=== PATIENT | female | born 1960 ===

== ENCOUNTER 2017-11-16 14:31 | Emergency (ER) | payer OTHER ==
[~2017-11-16] VITALS: Ht 154.9 cm; Wt 74.8 kg
[2017-11-16] MEDS ORDERED: HYDROCHLOROTH12.5 M1 PO (14:51)
[2017-11-16] MEDS ORDERED: INDERAL LA80 MG PO (14:51)
[2017-11-16] MEDS ORDERED: BUTALB-ACETAMI1 EACH PO (23:26)
[2017-11-16] MEDS ORDERED: PROTONIX40 MG PO (23:26)
[2017-11-16] MEDS ORDERED: METOCLOPRAMIDE10 MG PO (23:26)
[2017-11-16] MEDS ORDERED: ZANTAC300 MG PO (23:26)
[2017-11-16] MEDS ORDERED: APETIGEN-PLUS1 EACH PO (23:33)
[2017-11-16] MEDS ORDERED: DIPHENHYDRAMINE50 M1 PO (23:33)
== END 2017-11-16 23:47 | disposition home or self-care (01) ==
LOC: ER 14:31
DX: R51 Headache (principal); K29.70 Gastritis, unspecified, without bleeding

== ENCOUNTER 2018-12-31 09:19 | Outpatient (CLI) | payer OTHER ==
[~2018-12-31 09:19] MED LIST: APETIGEN-PLUS1 EACH PO; BUTALB-ACETAMI1 EACH PO; DIPHENHYDRAMINE50 M1 PO; HYDROCHLOROTH12.5 M1 PO; INDERAL LA80 MG PO; METOCLOPRAMIDE10 MG PO; PROTONIX40 MG PO; ZANTAC300 MG PO
== END 2018-12-31 11:10 | disposition home or self-care (01) ==
LOC: SONOGRAMA 09:19
DX: E04.1 Nontoxic single thyroid nodule (principal)